=== PATIENT | male | born 1940 | race African-American/Black ===

== ENCOUNTER 2022-08-09 08:00 | Inpatient (IN) | payer MEDICARE, MEDICAID ==
[~2022-08-09] VITALS: Ht 188 cm; Wt 123.4 kg
[2022-08-09] VITALS: BP 142/98
[~2022-08-09 08:00] MED LIST: AMOX1TAB15 MT; CARV6.2548 PO; CHLO25TA2 PO; FINA1TAB18 PO; FURO-151 MT; SACU1TAB PO
[2022-08-09 12:42] LABS: BASOPHILS % 0.9 % (0.0-2.0); EOSINOPHILS % 1.9 % (0.0-5.0); HEMATOCRIT. 31.5 % (42.0-52.0); HEMOGLOBIN. 10.1 g/dL (14.0-18.0); LYMPHOCYTES % 21.4 % (20.0-50.0); MEAN CORPUSCULAR HEMOGLOBIN 27.9 pg (28.0-32.0); MEAN CORPUSCULAR VOLUME 86.6 fL (80.0-94.0); MONOCYTES % 13.4 % (2.0-8.0); NEUTROPHILS % 62.4 % (40.0-76.0); PLATELET 62 x1000/uL (130-400); RED BLOOD CELL COUNT 3.64 mill/uL (4.7-6.1); RED CELL DISTRIBUTION WIDTH 15.4 % (11.6-14.6)
[2022-08-09 12:43] LABS: CHLORIDE 118 mEq/L (98-107)
[2022-08-09] MEDS ORDERED: FUROSEMIDE 40MG/4ML VIAL IVP ONE (13:30)
[2022-08-09 23:59] VITALS: BP 142/98
[2022-08-10] VITALS: BP 142/98
[2022-08-10] MEDS ORDERED: DEXTROSE 50% WATER 50ML SYRINGE IV PRN (01:30)
[2022-08-10] MEDS ORDERED: ACETAMINOPHEN 325MG TABLET PO PRN (01:30)
[2022-08-10] MEDS: BLOOD SUGAR DIAGNOSTIC STRIP TEST SCH ×4 (05:36→20:53)
[2022-08-10] MEDS: INSULIN LISPRO 100 UNITS/ML SUBCUT SCH ×4 (05:36→20:53)
[2022-08-10 06:57] LABS: HEMATOCRIT. 31.3 % (42.0-52.0); HEMOGLOBIN. 10.1 g/dL (14.0-18.0); MEAN CORPUSCULAR HEMOGLOBIN 28.4 pg (28.0-32.0); MEAN CORPUSCULAR VOLUME 87.6 fL (80.0-94.0); MEAN PLATELET VOLUME 10.7 fl (7.4-10.4); PLATELET 59 x1000/uL (130-400); RED BLOOD CELL COUNT 3.58 mill/uL (4.7-6.1); RED CELL DISTRIBUTION WIDTH 16.3 % (11.6-14.6)
[2022-08-10 07:28] LABS: T4 FREE 0.96 ng/dL (0.76-1.46)
[2022-08-10 08:14] VITALS: BP 140/89
[2022-08-10] MEDS ORDERED: FUROSEMIDE 40MG TABLET PO SCH (09:00)
[2022-08-10] MEDS: CARVEDILOL 6.25 MG TABLET PO SCH ×2 (09:17→20:54)
[2022-08-10] MEDS: CHLORTHALIDONE 25MG TABLET PO SCH (09:17)
[2022-08-10] MEDS: FUROSEMIDE 40MG/4ML VIAL IVP SCH ×2 (09:45→17:42)
[2022-08-10 12:10] VITALS: BP 131/92
[2022-08-10 15:59] VITALS: BP 128/94
[2022-08-10] MEDS: LEVOTHYROXINE SODIUM 50MCG TABLET PO SCH (17:42)
[2022-08-10 17:53] LABS: PLATELET ESTIMATE MARKEDLY DECREASED
[2022-08-10 20:00] VITALS: BP 122/79
[2022-08-10] MEDS ORDERED: ENOXAPARIN 40MG/0.4ML SYR SUBCUT SCH (21:00)
[2022-08-11] VITALS: BP 92/49
[2022-08-11 04:00] VITALS: BP 108/71
[2022-08-11] MEDS: BLOOD SUGAR DIAGNOSTIC STRIP TEST SCH (05:39)
[2022-08-11] MEDS: INSULIN LISPRO 100 UNITS/ML SUBCUT SCH (05:39)
[2022-08-11] MEDS: LEVOTHYROXINE SODIUM 50MCG TABLET PO SCH (05:39)
[2022-08-11 08:00] VITALS: BP 145/92
[2022-08-11] MEDS: METOLAZONE 2.5MG TABLET PO SCH (10:19)
[2022-08-11] MEDS: CHLORTHALIDONE 25MG TABLET PO SCH (10:20)
[2022-08-11] MEDS: TAMSULOSIN HCL 0.4MG SR CAPSULE PO SCH (10:20)
[2022-08-11] MEDS: FUROSEMIDE 40MG/4ML VIAL IVP SCH ×2 (10:21→17:00)
[2022-08-11 12:00] VITALS: BP 138/82
[2022-08-11 16:00] VITALS: BP 125/78
[2022-08-11 20:00] VITALS: BP 128/77
[2022-08-11] MEDS ORDERED: DIPHENHYDRAMINE 25MG CAPSULE PO NR (23:00)
[2022-08-12] VITALS (7 sets, daily range): BP systolic 125–146; BP diastolic 70–93
[2022-08-12] MEDS ORDERED: DIPHENHYDRAMINE 25MG CAPSULE PO NR (01:15)
[2022-08-12 06:45] LABS: BASOPHILS % 1.1 % (0.0-2.0); EOSINOPHILS % 1.7 % (0.0-5.0); HEMATOCRIT. 30.7 % (42.0-52.0); LYMPHOCYTES % 20.4 % (20.0-50.0); MEAN CORPUSCULAR HEMOGLOBIN 28.1 pg (28.0-32.0); MEAN CORPUSCULAR VOLUME 86.7 fL (80.0-94.0); MONOCYTES % 13.3 % (2.0-8.0); NEUTROPHILS % 63.5 % (40.0-76.0); RED BLOOD CELL COUNT 3.55 mill/uL (4.7-6.1); RED CELL DISTRIBUTION WIDTH 16.2 % (11.6-14.6)
[2022-08-12 07:58] LABS: PLATELET 47 x1000/uL (130-400)
[2022-08-12] MEDS: FUROSEMIDE 40MG/4ML VIAL IVP SCH ×2 (10:50→18:07)
[2022-08-12] MEDS: METOLAZONE 2.5MG TABLET PO SCH (10:51)
[2022-08-12] MEDS: TAMSULOSIN HCL 0.4MG SR CAPSULE PO SCH (10:51)
[2022-08-12] MEDS: LEVOTHYROXINE SODIUM 50MCG TABLET PO SCH (10:52)
[2022-08-12 18:26] LABS: PLATELET ESTIMATE DECREASED
[2022-08-13 00:32] VITALS: BP 137/96
[2022-08-13 04:00] VITALS: BP 132/95
[2022-08-13 07:56] LABS: BASOPHILS % 0.9 % (0.0-2.0); EOSINOPHILS % 1.1 % (0.0-5.0); HEMATOCRIT. 30.9 % (42.0-52.0); HEMOGLOBIN. 10.1 g/dL (14.0-18.0); LYMPHOCYTES % 23.1 % (20.0-50.0); MEAN CORPUSCULAR HEMOGLOBIN 28.3 pg (28.0-32.0); MEAN CORPUSCULAR VOLUME 86.8 fL (80.0-94.0); MEAN PLATELET VOLUME 11.1 fl (7.4-10.4); MONOCYTES % 13.4 % (2.0-8.0); NEUTROPHILS % 61.5 % (40.0-76.0); RED BLOOD CELL COUNT 3.56 mill/uL (4.7-6.1); RED CELL DISTRIBUTION WIDTH 15.9 % (11.6-14.6)
[2022-08-13 08:00] VITALS: BP 138/94
[2022-08-13 08:00] LABS: PLATELET 36 x1000/uL (130-400)
[2022-08-13 09:06] LABS: PHOSPHORUS 4.6 mg/dL (2.5-4.9)
[2022-08-13] MEDS: FUROSEMIDE 40MG/4ML VIAL IVP SCH (09:30)
[2022-08-13] MEDS: LEVOTHYROXINE SODIUM 50MCG TABLET PO SCH (09:31)
[2022-08-13] MEDS: TAMSULOSIN HCL 0.4MG SR CAPSULE PO SCH (09:31)
[2022-08-13] MEDS: METOLAZONE 2.5MG TABLET PO SCH (09:36)
[2022-08-13] MEDS ORDERED: NON FORMULARY PATIENT HOME MED XX SCH (11:15)
[2022-08-13 12:00] VITALS: BP 130/90
[2022-08-13 16:00] VITALS: BP 140/89
[2022-08-13] MEDS: SACUBITRIL/VALSARTAN 49MG/51MG TABLET PO SCH (17:49)
[2022-08-13 20:00] VITALS: BP 152/92
[2022-08-13] MEDS ORDERED: FOLIC ACID 1 MG, THIAMINE HCL 100 MG, MVI, ADULT NO.1 10 ML in DEXTROSE 5% WATER 1,000 ML IV ONE ×4 (23:00)
[2022-08-14 04:00] VITALS: BP 133/94
[2022-08-14 08:00] VITALS: BP 132/90
[2022-08-14 08:14] LABS: HEMATOCRIT. 29.2 % (42.0-52.0); HEMOGLOBIN. 9.6 g/dL (14.0-18.0); MEAN CORPUSCULAR HEMOGLOBIN 28.5 pg (28.0-32.0); MEAN CORPUSCULAR VOLUME 86.1 fL (80.0-94.0); MEAN PLATELET VOLUME 11.9 fl (7.4-10.4); RED BLOOD CELL COUNT 3.39 mill/uL (4.7-6.1)
[2022-08-14 08:17] LABS: PLATELET 33 x1000/uL (130-400)
[2022-08-14 09:10] LABS: PHOSPHORUS 4.7 mg/dL (2.5-4.9)
[2022-08-14 09:37] LABS: FOLIC ACID (FOLATE) SERUM >20 ng/mL ng/mL (>5.38); VITAMIN B12 SERUM >2000 pg/mL pg/mL (211-911)
[2022-08-14] MEDS: SACUBITRIL/VALSARTAN 49MG/51MG TABLET PO SCH ×2 (09:58→17:00)
[2022-08-14] MEDS: LEVOTHYROXINE SODIUM 50MCG TABLET PO SCH (09:58)
[2022-08-14] MEDS: TAMSULOSIN HCL 0.4MG SR CAPSULE PO SCH (09:58)
[2022-08-14 11:45] VITALS: BP 129/93
[2022-08-14] MEDS: DEXTROSE 5% WATER 1,000 ML IV SCH (15:16)
[2022-08-14 16:00] VITALS: BP 130/83
[2022-08-14 16:15] LABS: CLARITY URINE CLEAR (CLEAR); COLOR URINE YELLOW (YELLOW); KETONES URINE NEGATIVE (NEGATIVE); LEUKOCYTE ESTERASE URINE 3+ (NEGATIVE); NITRITE URINE NEGATIVE (NEGATIVE); OCCULT BLOOD URINE NEGATIVE (NEGATIVE); PH URINE 5.5 (4.5-8.0); PROTEIN URINE NEGATIVE (NEGATIVE); SPECIFIC GRAVITY URINE 1.011 (1.005-1.030)
[2022-08-14 20:00] VITALS: BP 111/89
[2022-08-15] VITALS (7 sets, daily range): BP systolic 107–131; BP diastolic 73–89
[2022-08-15 01:54] LABS: PLATELET ESTIMATE DECREASED
[2022-08-15 06:23] LABS: PHOSPHORUS 4.1 mg/dL (2.5-4.9)
[2022-08-15 06:43] LABS: BASOPHILS % 0.8 % (0.0-2.0); EOSINOPHILS % 1.6 % (0.0-5.0); HEMATOCRIT. 29.5 % (42.0-52.0); HEMOGLOBIN. 9.8 g/dL (14.0-18.0); LYMPHOCYTES % 20.2 % (20.0-50.0); MEAN CORPUSCULAR HEMOGLOBIN 28.3 pg (28.0-32.0); MEAN CORPUSCULAR VOLUME 85.7 fL (80.0-94.0); MEAN PLATELET VOLUME 12.3 fl (7.4-10.4); MONOCYTES % 12.7 % (2.0-8.0); NEUTROPHILS % 64.7 % (40.0-76.0); RED BLOOD CELL COUNT 3.45 mill/uL (4.7-6.1); RED CELL DISTRIBUTION WIDTH 16.2 % (11.6-14.6)
[2022-08-15] MEDS ORDERED: LEVOTHYROXINE SODIUM 50MCG TABLET PO SCH (07:40)
[2022-08-15] MEDS: TAMSULOSIN HCL 0.4MG SR CAPSULE PO SCH (09:00)
[2022-08-15] MEDS: SACUBITRIL/VALSARTAN 49MG/51MG TABLET PO SCH ×2 (10:14→18:35)
[2022-08-15] MEDS: DEXTROSE 5% WATER 1,000 ML IV SCH (10:22)
[2022-08-15 14:49] LABS: PLATELET ESTIMATE MARKEDLY DECREASED
[2022-08-15 14:50] LABS: PLATELET 29 x1000/uL (130-400)
[2022-08-16] VITALS: BP 130/75
[2022-08-16 06:52] LABS: HEMATOCRIT. 28.8 % (42.0-52.0); HEMOGLOBIN. 9.4 g/dL (14.0-18.0); MEAN CORPUSCULAR HEMOGLOBIN 28.1 pg (28.0-32.0); MEAN CORPUSCULAR VOLUME 85.6 fL (80.0-94.0); MEAN PLATELET VOLUME 11.9 fl (7.4-10.4); RED BLOOD CELL COUNT 3.36 mill/uL (4.7-6.1); RED CELL DISTRIBUTION WIDTH 16.8 % (11.6-14.6)
[2022-08-16 08:01] LABS: CHLORIDE 116 mEq/L (98-107)
[2022-08-16 08:23] VITALS: BP 128/83
[2022-08-16] MEDS: TAMSULOSIN HCL 0.4MG SR CAPSULE PO SCH (09:18)
[2022-08-16] MEDS: LEVOTHYROXINE SODIUM 75MCG TABLET PO SCH (09:19)
[2022-08-16] MEDS: SACUBITRIL/VALSARTAN 49MG/51MG TABLET PO SCH ×2 (09:19→17:57)
[2022-08-16 09:33] LABS: NUCLEATED RED BLOOD CELLS 4 /100 WBC; PLATELET ESTIMATE MARKEDLY DECREASED
[2022-08-16 09:34] LABS: PLATELET 27 x1000/uL (130-400)
[2022-08-16 10:06] LABS: IMMUNOGLOBULIN G 1509 mg/dL (603-1613); IMMUNOGLOBULIN M 80 mg/dL (15-143)
[2022-08-16 12:18] VITALS: BP 102/56
[2022-08-16 13:11] LABS: IMMUNOGLOBULIN A 815 mg/dL (61-437)
[2022-08-16 16:02] VITALS: BP 90/59
[2022-08-16] MEDS ORDERED: LEVOTHYROXINE SODIUM 100 MCG/ VIAL IV SCH (16:45)
[2022-08-16] MEDS ORDERED: CEFTRIAXONE 1,000 MG in DEXTROSE 5% WATER 50 ML IV SCH (17:00)
[2022-08-16 20:00] VITALS: BP_SYST 103; BP_SYST 118; BP_DIAS 59; BP_DIAS 77
[2022-08-16] MEDS: DEXTROSE 5% WATER 1,000 ML IV SCH (22:53)
[2022-08-17] VITALS (7 sets, daily range): BP systolic 93–125; BP diastolic 41–77
[2022-08-17] MEDS: DEXTROSE 5% WATER 1,000 ML IV SCH (03:54)
[2022-08-17 06:09] LABS: BASOPHILS % 0.3 % (0.0-2.0); EOSINOPHILS % 0.8 % (0.0-5.0); HEMATOCRIT. 28.8 % (42.0-52.0); HEMOGLOBIN. 9.4 g/dL (14.0-18.0); LYMPHOCYTES % 13.3 % (20.0-50.0); MEAN CORPUSCULAR VOLUME 85.6 fL (80.0-94.0); MEAN PLATELET VOLUME 11.1 fl (7.4-10.4); MONOCYTES % 12.3 % (2.0-8.0); NEUTROPHILS % 73.3 % (40.0-76.0); RED BLOOD CELL COUNT 3.36 mill/uL (4.7-6.1); RED CELL DISTRIBUTION WIDTH 16.7 % (11.6-14.6)
[2022-08-17 06:55] LABS: BG BASE EXCESS -2.6 mmol/L (-2.0-2.0); BG CARBOXYHEMOGLOBIN 0.8 % (0.5-1.5); BG DEOXYHEMOGLOBIN 3.6 % (0.0-5.0); BG FRACTION INSPIRED OXYGEN 28; BG HCO3 ACT 22.8 mmol/L (22.0-26.0); BG METHEMOGLOBIN 0.3 % (0.0-1.5); BG OXYGEN SATURATION 96.4 % (92.0-98.5); BG OXYHEMOGLOBIN 95.3 % (94.0-97.0); BG PCO2 41.6 mmHg (35.0-45.0); BG PH 7.356 (7.350-7.450); BG PO2 97.8 mmHg (75.0-100.0); BG SAMPLE SITE LEFT BRACHIAL; BG TOTAL HEMOGLOBIN 10.6 g/dL (12.0-18.0); BG VENT MODE NASAL CANNULA
[2022-08-17 07:33] LABS: PHOSPHORUS 3.9 mg/dL (2.5-4.9)
[2022-08-17 07:38] LABS: CREATINE KINASE 59 IU/L (39-308)
[2022-08-17] MEDS: LEVOTHYROXINE SODIUM 75MCG TABLET PO SCH (07:40)
[2022-08-17] MEDS: SACUBITRIL/VALSARTAN 49MG/51MG TABLET PO SCH ×2 (09:00→17:00)
[2022-08-17] MEDS: TAMSULOSIN HCL 0.4MG SR CAPSULE PO SCH (09:00)
[2022-08-17 11:23] LABS: PLATELET 24 x1000/uL (130-400)
[2022-08-17 14:25] LABS: PLATELET ESTIMATE MARKEDLY DECREASED
[2022-08-17] MEDS: CEFEPIME 1,000 MG in DEXTROSE 5% WATER 50 ML IV SCH (17:29)
[2022-08-18] VITALS (13 sets, daily range): BP systolic 90–175; BP diastolic 38–148
[2022-08-18] MEDS: DEXTROSE 5% WATER 1,000 ML IV SCH ×2 (00:32→18:02)
[2022-08-18 06:21] LABS: BASOPHILS % 0.3 % (0.0-2.0); EOSINOPHILS % 1.3 % (0.0-5.0); HEMATOCRIT. 29.4 % (42.0-52.0); HEMOGLOBIN. 9.5 g/dL (14.0-18.0); LYMPHOCYTES % 14.9 % (20.0-50.0); MEAN CORPUSCULAR HEMOGLOBIN 28.1 pg (28.0-32.0); MEAN CORPUSCULAR VOLUME 86.9 fL (80.0-94.0); MEAN PLATELET VOLUME 10.6 fl (7.4-10.4); MONOCYTES % 10.3 % (2.0-8.0); NEUTROPHILS % 73.2 % (40.0-76.0); RED BLOOD CELL COUNT 3.38 mill/uL (4.7-6.1); RED CELL DISTRIBUTION WIDTH 16.4 % (11.6-14.6)
[2022-08-18 06:36] LABS: INR 1.3; PARTIAL THROMBOPLASTIN TIME 43.9 sec (23.4-31.0); PROTHROMBIN TIME 13.7 sec (9.6-11.0)
[2022-08-18 07:34] LABS: PLATELET 19 x1000/uL (130-400)
[2022-08-18] MEDS: LEVOTHYROXINE SODIUM 100MCG TABLET PO SCH (08:37)
[2022-08-18] MEDS: TAMSULOSIN HCL 0.4MG SR CAPSULE PO SCH (08:49)
[2022-08-18 11:25] LABS: PHOSPHORUS 3.9 mg/dL (2.5-4.9)
[2022-08-18] MEDS: CEFEPIME 1,000 MG in DEXTROSE 5% WATER 50 ML IV SCH (14:43)
[2022-08-19] VITALS (16 sets, daily range): BP systolic 62–122; BP diastolic 28–72
[2022-08-19 07:28] LABS: HEMATOCRIT. 30.8 % (42.0-52.0); MEAN CORPUSCULAR HEMOGLOBIN 28.1 pg (28.0-32.0); MEAN CORPUSCULAR VOLUME 86.9 fL (80.0-94.0); RED BLOOD CELL COUNT 3.54 mill/uL (4.7-6.1); RED CELL DISTRIBUTION WIDTH 16.6 % (11.6-14.6)
[2022-08-19] MEDS: LEVOTHYROXINE SODIUM 100MCG TABLET PO SCH (07:30)
[2022-08-19] MEDS: TAMSULOSIN HCL 0.4MG SR CAPSULE PO SCH (09:00)
[2022-08-19 09:20] LABS: PLATELET 26 x1000/uL (130-400)
[2022-08-19 13:02] LABS: NUCLEATED RED BLOOD CELLS 4 /100 WBC
[2022-08-19 13:03] LABS: PLATELET ESTIMATE MARKEDLY DECREASED
[2022-08-19] MEDS: CEFEPIME 1,000 MG in DEXTROSE 5% WATER 50 ML IV SCH (15:29)
[2022-08-19] MEDS: DEXTROSE 5% WATER 1,000 ML IV SCH ×2 (15:30→23:42)
[2022-08-19] MEDS ORDERED: SODIUM CHLORIDE 0.9% 500 ML IV ONE (19:00)
[2022-08-19 19:55] LABS: BG BASE EXCESS -1.8 mmol/L (-2.0-2.0); BG CARBOXYHEMOGLOBIN 0.1 % (0.5-1.5); BG DEOXYHEMOGLOBIN 7.3 % (0.0-5.0); BG HCO3 ACT 22.1 mmol/L (22.0-26.0); BG METHEMOGLOBIN 0.3 % (0.0-1.5); BG OXYGEN SATURATION 92.7 % (92.0-98.5); BG OXYHEMOGLOBIN 92.3 % (94.0-97.0); BG PCO2 34.1 mmHg (35.0-45.0); BG PH 7.429 (7.350-7.450); BG SAMPLE SITE RIGHT RADIAL; BG TOTAL HEMOGLOBIN 9.9 g/dL (12.0-18.0); BG VENT MODE NASAL CANNULA
[2022-08-19] MEDS: LEVOTHYROXINE SODIUM 100 MCG/ VIAL IV SCH (23:42)
[2022-08-19] MEDS: HYDROCORTISONE SOD SUCCINATE 100 MG/2 ML VIAL IV SCH (23:42)
[2022-08-20] VITALS (13 sets, daily range): BP systolic 81–116; BP diastolic 46–87
[2022-08-20 04:38] LABS: BASOPHILS % 0.1 % (0.0-2.0); EOSINOPHILS % 0.1 % (0.0-5.0); HEMATOCRIT. 27.9 % (42.0-52.0); HEMOGLOBIN. 9.3 g/dL (14.0-18.0); LYMPHOCYTES % 3.8 % (20.0-50.0); MEAN CORPUSCULAR HEMOGLOBIN 28.2 pg (28.0-32.0); MEAN CORPUSCULAR VOLUME 84.6 fL (80.0-94.0); MEAN PLATELET VOLUME 10.9 fl (7.4-10.4); MONOCYTES % 5.9 % (2.0-8.0); NEUTROPHILS % 90.1 % (40.0-76.0)
[2022-08-20 04:47] LABS: INR 1.2; PLATELET 29 x1000/uL (130-400)
[2022-08-20 04:58] LABS: PHOSPHORUS 4.4 mg/dL (2.5-4.9)
[2022-08-20 05:18] LABS: HEPATITIS B SURFACE ANTIGEN NEGATIVE
[2022-08-20] MEDS: HYDROCORTISONE SOD SUCCINATE 100 MG/2 ML VIAL IV SCH ×3 (05:36→21:22)
[2022-08-20] MEDS: TAMSULOSIN HCL 0.4MG SR CAPSULE PO SCH (08:37)
[2022-08-20] MEDS: LEVOTHYROXINE SODIUM 100 MCG/ VIAL IV SCH (08:37)
[2022-08-20] MEDS: DEXTROSE 5% WATER 1,000 ML IV SCH ×2 (10:47→21:32)
[2022-08-20] MEDS ORDERED: NALOXONE HCL 0.4MG/ML VIAL IV PRN (11:00)
[2022-08-20] MEDS ORDERED: MORPHINE SULFATE 2 MG/ML CPJ (NOT FOR IM USE) IV PRN (11:00)
[2022-08-20] MEDS ORDERED: LORAZEPAM 2MG/ML CPJ IV PRN (11:00)
[2022-08-20] MEDS: CEFEPIME 1,000 MG in DEXTROSE 5% WATER 50 ML IV SCH (15:20)
[2022-08-21] VITALS: BP 106/62
[2022-08-21 04:00] VITALS: BP 112/76
[2022-08-21] MEDS: HYDROCORTISONE SOD SUCCINATE 100 MG/2 ML VIAL IV SCH ×3 (05:06→21:11)
[2022-08-21] MEDS: DEXTROSE 5% WATER 1,000 ML IV SCH ×2 (06:24→16:32)
[2022-08-21 06:32] LABS: BASOPHILS % 0.1 % (0.0-2.0); HEMATOCRIT. 29.6 % (42.0-52.0); HEMOGLOBIN. 9.9 g/dL (14.0-18.0); LYMPHOCYTES % 7.9 % (20.0-50.0); MEAN CORPUSCULAR HEMOGLOBIN 28.7 pg (28.0-32.0); MEAN CORPUSCULAR VOLUME 85.2 fL (80.0-94.0); MEAN PLATELET VOLUME 10.4 fl (7.4-10.4); MONOCYTES % 5.9 % (2.0-8.0); NEUTROPHILS % 86.1 % (40.0-76.0); RED BLOOD CELL COUNT 3.47 mill/uL (4.7-6.1); RED CELL DISTRIBUTION WIDTH 16.7 % (11.6-14.6)
[2022-08-21 06:42] LABS: PLATELET 30 x1000/uL (130-400)
[2022-08-21 07:40] LABS: PHOSPHORUS 5.1 mg/dL (2.5-4.9)
[2022-08-21 07:48] VITALS: BP 142/82
[2022-08-21] MEDS: TAMSULOSIN HCL 0.4MG SR CAPSULE PO SCH (09:00)
[2022-08-21] MEDS: LEVOTHYROXINE SODIUM 100 MCG/ VIAL IV SCH (09:23)
[2022-08-21 11:57] VITALS: BP 124/77
[2022-08-21 12:42] LABS: PLATELET ESTIMATE MARKEDLY DECREASED
[2022-08-21] MEDS: CEFEPIME 1,000 MG in DEXTROSE 5% WATER 50 ML IV SCH (15:01)
[2022-08-21 15:51] VITALS: BP 135/88
[2022-08-21 20:00] VITALS: BP 134/91
[2022-08-21] MEDS: DEXT 5%/0.45% NACL 1000ML 1,000 ML IV SCH (20:00)
[2022-08-22] VITALS: BP 138/88
[2022-08-22 04:00] VITALS: BP 136/95
[2022-08-22 04:09] LABS: ANTI-CARDIOLIPIN AB IGA < 9 APL U/mL (0-11); ANTI-CARDIOLIPIN AB IGG < 9 GPL U/mL (0-14); ANTI-CARDIOLIPIN AB IGM < 9 MPL U/mL (0-12)
[2022-08-22] MEDS: HYDROCORTISONE SOD SUCCINATE 100 MG/2 ML VIAL IV SCH ×2 (05:25→17:51)
[2022-08-22 08:00] VITALS: BP 124/79
[2022-08-22 08:52] LABS: EOSINOPHILS % 0.1 % (0.0-5.0); HEMATOCRIT. 30.3 % (42.0-52.0); HEMOGLOBIN. 10.2 g/dL (14.0-18.0); LYMPHOCYTES % 11.3 % (20.0-50.0); MEAN CORPUSCULAR HEMOGLOBIN 28.8 pg (28.0-32.0); MEAN PLATELET VOLUME 10.5 fl (7.4-10.4); MONOCYTES % 6.7 % (2.0-8.0); NEUTROPHILS % 81.9 % (40.0-76.0); RED BLOOD CELL COUNT 3.53 mill/uL (4.7-6.1); RED CELL DISTRIBUTION WIDTH 16.7 % (11.6-14.6)
[2022-08-22] MEDS: TAMSULOSIN HCL 0.4MG SR CAPSULE PO SCH (09:00)
[2022-08-22] MEDS: LEVOTHYROXINE SODIUM 100 MCG/ VIAL IV SCH (09:45)
[2022-08-22 09:52] LABS: PLATELET 37 x1000/uL (130-400)
[2022-08-22 12:00] VITALS: BP 124/75
[2022-08-22] MEDS: CEFEPIME 1,000 MG in DEXTROSE 5% WATER 50 ML IV SCH (15:40)
[2022-08-22] MEDS: DEXT 5%/0.45% NACL 1000ML 1,000 ML IV SCH ×2 (15:40→21:41)
[2022-08-22 16:00] VITALS: BP 121/69
[2022-08-22 17:06] LABS: FACTOR IX ACTIVITY 98 % (60-177); FACTOR VIII ACTIVITY 196 % (56-140)
[2022-08-22 20:00] VITALS: BP 125/78
[2022-08-23] VITALS (8 sets, daily range): BP systolic 98–135; BP diastolic 57–83
[2022-08-23] MEDS: HYDROCORTISONE SOD SUCCINATE 100 MG/2 ML VIAL IV SCH ×3 (05:21→19:31)
[2022-08-23 07:30] LABS: EOSINOPHILS % 0.1 % (0.0-5.0); HEMATOCRIT. 30.3 % (42.0-52.0); LYMPHOCYTES % 15.3 % (20.0-50.0); MEAN CORPUSCULAR HEMOGLOBIN 28.2 pg (28.0-32.0); MEAN CORPUSCULAR VOLUME 85.5 fL (80.0-94.0); MEAN PLATELET VOLUME 10.1 fl (7.4-10.4); MONOCYTES % 9.7 % (2.0-8.0); NEUTROPHILS % 74.9 % (40.0-76.0); RED BLOOD CELL COUNT 3.55 mill/uL (4.7-6.1); RED CELL DISTRIBUTION WIDTH 16.4 % (11.6-14.6)
[2022-08-23] MEDS: TAMSULOSIN HCL 0.4MG SR CAPSULE PO SCH (07:51)
[2022-08-23] MEDS: LEVOTHYROXINE SODIUM 100 MCG/ VIAL IV SCH (07:54)
[2022-08-23 07:56] LABS: INR 1.2; PROTHROMBIN TIME 12.7 sec (9.6-11.0)
[2022-08-23 08:18] LABS: PLATELET 36 x1000/uL (130-400)
[2022-08-23] MEDS: DEXT 5%/0.45% NACL 1000ML 1,000 ML IV SCH (11:21)
[2022-08-23] MEDS ORDERED: KCL 10MEQ/50ML PREMIX 50 ML IV SCH (12:00)
[2022-08-24] VITALS: BP 118/80
[2022-08-24 03:07] LABS: BASOPHILS % 0.1 % (0.0-2.0); EOSINOPHILS % 0.1 % (0.0-5.0); HEMOGLOBIN. 10.2 g/dL (14.0-18.0); LYMPHOCYTES % 8.2 % (20.0-50.0); MEAN CORPUSCULAR HEMOGLOBIN 28.1 pg (28.0-32.0); MEAN CORPUSCULAR VOLUME 85.5 fL (80.0-94.0); MEAN PLATELET VOLUME 9.3 fl (7.4-10.4); NEUTROPHILS % 79.6 % (40.0-76.0); PLATELET 55 x1000/uL (130-400); RED BLOOD CELL COUNT 3.63 mill/uL (4.7-6.1); RED CELL DISTRIBUTION WIDTH 16.9 % (11.6-14.6)
[2022-08-24] MEDS: DEXT 5%/0.45% NACL 1000ML 1,000 ML IV SCH (03:08)
[2022-08-24 04:00] VITALS: BP 130/76
[2022-08-24] MEDS: HYDROCORTISONE SOD SUCCINATE 100 MG/2 ML VIAL IV SCH ×2 (05:29→17:12)
[2022-08-24 07:24] LABS: INR 1.2; PROTHROMBIN TIME 12.5 sec (9.6-11.0)
[2022-08-24 08:00] VITALS: BP 128/80
[2022-08-24] MEDS: TAMSULOSIN HCL 0.4MG SR CAPSULE PO SCH (09:29)
[2022-08-24] MEDS: LEVOTHYROXINE SODIUM 100 MCG/ VIAL IV SCH (09:30)
[2022-08-24 12:00] VITALS: BP 132/88
[2022-08-24 16:00] VITALS: BP 135/93
[2022-08-24] MEDS ORDERED: FUROSEMIDE 20MG/2ML VIAL IVP SCH (16:15)
[2022-08-24] MEDS: FUROSEMIDE 20MG/2ML VIAL IVP SCH (17:46)
[2022-08-24 20:00] VITALS: BP 130/80
[2022-08-25] VITALS: BP 128/60
[2022-08-25 04:00] VITALS: BP 114/70
[2022-08-25] MEDS: HYDROCORTISONE SOD SUCCINATE 100 MG/2 ML VIAL IV SCH ×2 (05:49→18:01)
[2022-08-25 06:14] LABS: HEMATOCRIT. 31.4 % (42.0-52.0); HEMOGLOBIN. 10.6 g/dL (14.0-18.0); MEAN CORPUSCULAR HEMOGLOBIN 28.8 pg (28.0-32.0); MEAN CORPUSCULAR VOLUME 85.6 fL (80.0-94.0); MEAN PLATELET VOLUME 9.4 fl (7.4-10.4); PLATELET 55 x1000/uL (130-400); RED BLOOD CELL COUNT 3.67 mill/uL (4.7-6.1)
[2022-08-25 07:40] LABS: PHOSPHORUS 4.1 mg/dL (2.5-4.9)
[2022-08-25 08:00] VITALS: BP 147/84
[2022-08-25] MEDS ORDERED: POTASSIUM CHLORIDE 20MEQ/PACKET PO NR (09:00)
[2022-08-25] MEDS: LEVOTHYROXINE SODIUM 100 MCG/ VIAL IV SCH (09:45)
[2022-08-25] MEDS: FUROSEMIDE 20MG/2ML VIAL IVP SCH (09:53)
[2022-08-25] MEDS: TAMSULOSIN HCL 0.4MG SR CAPSULE PO SCH (10:18)
[2022-08-25 10:31] LABS: PLATELET ESTIMATE DECREASED
[2022-08-25 12:00] VITALS: BP 141/82
[2022-08-25 16:00] VITALS: BP 152/97
[2022-08-25 20:00] VITALS: BP 138/87
[2022-08-26] VITALS (7 sets, daily range): BP systolic 124–144; BP diastolic 67–81
[2022-08-26] MEDS ORDERED: HYDROCORTISONE SOD SUCCINATE 100 MG/2 ML VIAL IV SCH (06:00)
[2022-08-26 06:28] LABS: HEMATOCRIT. 30.4 % (42.0-52.0); HEMOGLOBIN. 10.1 g/dL (14.0-18.0); MEAN CORPUSCULAR HEMOGLOBIN 28.3 pg (28.0-32.0); MEAN CORPUSCULAR VOLUME 85.5 fL (80.0-94.0); MEAN PLATELET VOLUME 9.4 fl (7.4-10.4); PLATELET 67 x1000/uL (130-400); RED BLOOD CELL COUNT 3.56 mill/uL (4.7-6.1); RED CELL DISTRIBUTION WIDTH 16.9 % (11.6-14.6)
[2022-08-26] MEDS ORDERED: POTASSIUM CHLORIDE 20MEQ TABLET SR PO NR (09:00)
[2022-08-26] MEDS: TAMSULOSIN HCL 0.4MG SR CAPSULE PO SCH (09:08)
[2022-08-26 09:31] LABS: PLATELET ESTIMATE DECREASED
[2022-08-26] MEDS ORDERED: FUROSEMIDE 20MG TABLET PO SCH (10:15)
[2022-08-27] MEDS ORDERED: LEVOTHYROXINE SODIUM 100MCG TABLET PO SCH (06:45)
[2022-08-27 07:10] LABS: ANTI-CARDIOLIPIN AB IGA < 9 APL U/mL (0-11); ANTI-CARDIOLIPIN AB IGG < 9 GPL U/mL (0-14); ANTI-CARDIOLIPIN AB IGM < 9 MPL U/mL (0-12)
== END 2022-08-26 23:30 | disposition hospice, home (50) | DRG 808 ==
LOC: ER 08:12 → MICUSO 17:01 → 7WST 08-10 01:00 → 5EST 08-17 09:59 → 5WST 08-20 14:35
PROVIDERS: ADMIT Internal Medicine Pulmonary Disease; ATTEND Internal Medicine Pulmonary Disease
PROC: 30233R1 Transfusion of Nonautologous Platelets into Peripheral Vein, Percutaneous Approach (ICD-10-PCS; principal; 2022-08-19)
DX: D61.818 Other pancytopenia (principal); G93.41 Metabolic encephalopathy; J96.90 Respiratory failure, unspecified, unspecified whether with hypoxia or hypercapnia; I50.43 Acute on chronic combined systolic (congestive) and diastolic (congestive) heart failure; I13.0 Hypertensive heart and chronic kidney disease with heart failure and stage 1 through stage 4 chronic kidney disease, or unspecified chronic kidney disease; N17.9 Acute kidney failure, unspecified; E87.0 Hyperosmolality and hypernatremia; E44.0 Moderate protein-calorie malnutrition; N39.0 Urinary tract infection, site not specified; D69.3 Immune thrombocytopenic purpura; E87.1 Hypo-osmolality and hyponatremia; J84.9 Interstitial pulmonary disease, unspecified; L97.909 Non-pressure chronic ulcer of unspecified part of unspecified lower leg with unspecified severity; N18.4 Chronic kidney disease, stage 4 (severe); R18.8 Other ascites; I42.0 Dilated cardiomyopathy; E03.9 Hypothyroidism, unspecified; E78.5 Hyperlipidemia, unspecified; I48.91 Unspecified atrial fibrillation; B96.89 Other specified bacterial agents as the cause of diseases classified elsewhere; E66.9 Obesity, unspecified; B35.1 Tinea unguium; D47.2 Monoclonal gammopathy; Z20.822 Contact with and (suspected) exposure to COVID-19; Z66 Do not resuscitate; E11.22 Type 2 diabetes mellitus with diabetic chronic kidney disease; E83.51 Hypocalcemia; E87.6 Hypokalemia; I08.1 Rheumatic disorders of both mitral and tricuspid valves; I25.10 Atherosclerotic heart disease of native coronary artery without angina pectoris; I89.0 Lymphedema, not elsewhere classified; Z51.5 Encounter for palliative care; B96.1 Klebsiella pneumoniae [K. pneumoniae] as the cause of diseases classified elsewhere; M19.90 Unspecified osteoarthritis, unspecified site; R31.9 Hematuria, unspecified; R04.0 Epistaxis; R13.10 Dysphagia, unspecified; Z79.82 Long term (current) use of aspirin; Z82.49 Family history of ischemic heart disease and other diseases of the circulatory system; Z79.899 Other long term (current) drug therapy; Z68.34 Body mass index [BMI] 34.0-34.9, adult
CPT/HCPCS: 36415; 36600; 70551; 71045; 71250; 76700; 76770; 80048; 80053; 80061; 80076; 81003; 82140; 82375; 82533; 82550; 82570; 82607; 82746; 82784; 82805; 82962; 83010; 83036; 83615; 83735; 83880; 84100; 84145; 84156; 84439; 84443; 84484; 85025; 85240; 85250; 85384; 85732; 86022; 86038; 86147; 86334; 86705; 86709; 86803; 86850; 86900; 86945; 87077; 87186; 87340; 87426; 87804; 92610; 93005; 93306; 93970; 97110; 97162; 97166; 97530; 99285; C1893; C9803; J0692; J0696; J1720; J1940; J2270; J3411; J3480; J3490; J7060; J7070; P9034; Q0163; A4315